=== PATIENT | male | born 1985 | race Caucasian/White ===

== ENCOUNTER 2021-09-02 06:29 | Emergency (ER) | payer OTHER ==
[~2021-09-02] VITALS: Ht 182.9 cm; Wt 86.0 kg
--- NOTE | 2021-09-02 06:41 | PHYS DOC ---
Adult General HPI HPI Patient is a 35-year-old male presenting for sinus issues. Reports he has had 10 days of generalized URI symptoms. Reports after day 3 he visited local urgent care, was negative for strep, flu and Covid at that time but subsequently given prednisone burst. He reports he had mild relief in symptoms but this was transient. Nonetheless, he has developed increased sinus pressure more focal on right with development of blood-tinged snot and production of green sputum which is unusual for him. 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 He has been at home self quarantining and has taken Covid test past 3 days at home that have all been negative. He presents today due to ongoing symptoms and concern his sinus issues are in fact bacterial instead of viral Review of Systems Review of Systems Fourteen body systems of review of systems have been reviewed. See HPI for pertinent positives and negative responses, other flynn all other systems are negative, non-pertinent or non-contributory Physical Exam Physical Exam General: Appears well, non toxic, and comfortable Skin: Warm, dry. Normal for ethnicity. HEENT: Atraumatic. PERRLA. Rhinorrhea and congestion. Nasal turbinates boggy b/l. Bilateral frontal sinuses tender to palpation and full. Moist mucous membranes. Uvula midline. Maintaining secretions. No phonation changes. Neck: Trachea midline. Normal ROM. No stridor. Respiratory: Normal WOB. CTAB w/o w/r/r. No tachypnea. Cardiovascular: Regular rate and rhythm. Normal peripheral perfusion. Abdomen: Soft. Non tender. No distension. Back: Normal ROM. Musculoskeletal: No swelling or deformity. Neuro: Alert and oriented x 4. MAEE. Lymph: No cervical LAD. Psych: Normal affect and mood. EKG EKG [] Radiology/Procedures Radiology/Procedures [] Heart Score C/O Chest Pain: No Risk Factors: Risk Factors: DM, Current or recent (<one month) smoker, HTN, HLP, family history of CAD, obesity. Risk Scores: Risk Factors: DM, Current or recent (<one month) smoker, HTN, HLP, family history of CAD, obesity. Course & Med Decision Making Course & Med Decision Making ABCs unremarkable HPI and comprehensive physical exam nonconcerning for any emergent or surgical issues No indication for further diagnostic ER workup, intervention, or hospitalization at this time During decision made to pursue antibiotic treatment at this time given length of symptoms and concern initially suspected viral sinusitis is in fact bacterial. Joint decision made to start Z-Niall Given symptoms, I have low suspicion for flu, Centor 0 and no indication to swab for strep. I discussed utility of Covid testing but patient has at home tests and prefers to keep swabbing self at home which I feel is appropriate Ultimately patient discharged home with new prescription for Z-Niall and continued supportive care with appropriate return precautions discussed and verbally understood by an afebrile hemodynamically stable patient Olman Disclaimer Olman Disclaimer This electronic medical record was generated, in whole or in part, using a voice recognition dictation system. Departure Departure: Impression: Primary Impression: Bacterial sinusitis Disposition: HOME / SELF CARE / HOMELESS Condition: STABLE Referrals: PCP,UNKNOWN (PCP) Patient Instructions: Sinusitis Scripts Azithromycin (AZITHROMYCIN PACKET) 1 Gm Packet 1 PACKET PO ONCE for sinusitis for 1 Day, #1 PACKET 0 Refills dissolve in 2 ounces of water Prov: JESSICA STEINER DO 09/02/21 JESSICA STEINER DO Sep 02, 2021 06:41
[2021-09-02 06:52] VITALS: BP 144/89
[2021-09-02] MEDS ORDERED: AZIT1PAC9 PO (06:54)
== END 2021-09-02 07:02 | disposition home or self-care (01) ==
LOC: ER 06:29
DX: J06.9 Acute upper respiratory infection, unspecified (principal); J32.9 Chronic sinusitis, unspecified
CPT/HCPCS: 99283-25

== ENCOUNTER 2021-09-03 07:25 | Emergency (ER) | payer OTHER ==
[~2021-09-03] VITALS: Ht 182.9 cm; Wt 86.0 kg
[2021-09-03 07:25] VITALS: BP 145/90
[~2021-09-03 07:25] MED LIST: AZIT1PAC9 PO
--- NOTE | 2021-09-03 07:33 | PHYS DOC ---
Past History Past Surgical History: No Surgical History Alcohol Use: None Adult General Chief Complaint Chief Complaint: NOSEBLEED HPI HPI Patient is a 35-year-old male presenting for nasal issues. I saw individual yesterday and diagnosed him with bacterial sinusitis. States that he presents today for reassurance that blood-tinged rhinorrhea and sputum/snot is okay. States he feels that the antibiotics have been helping him since his 1st dose yesterday but admits he has been blowing his nose more in attempt to relieve his nasal congestion. Reports he feels blood tinge draining down the back of his throat and at times has seen blood on tissue paper when blowing nose which concerned him prompting him to come in for evaluation. No fever, lightheaded or dizziness or other concerning signs or symptoms reported Review of Systems Review of Systems Fourteen body systems of review of systems have been reviewed. See HPI for pertinent positives and negative responses, other flynn all other systems are negative, non-pertinent or non-contributory Allergies Allergies Allergies Coded Allergies Type Severity Reaction Last Updated Verified No Known Drug Allergies 09/02/21 No Physical Exam Physical Exam Constitutional: Well developed, well nourished, no acute distress, non-toxic appearance. HENT: Normocephalic, atraumatic, bilateral external ears normal, oropharynx moist, no oral exudates, external nose unremarkable, bilateral nasal turbinates dry and raw, right side in particular has area which is raw with dried blood present in anterior nare Eyes: PERRLA, EOMI, conjunctiva normal, no discharge. Neck: Normal range of motion, no tenderness, supple, no stridor. Cardiovascular: Heart rate regular, sinus rhythm, no murmurs rubs or gallops Lungs & Thorax: Bilateral breath sounds clear to auscultation Abdomen: Bowel sounds normal, soft, no tenderness, no masses, no pulsatile masses. Nonsurgical abdomen, no peritoneal signs Skin: Warm, dry, no erythema, no rash. Back: No tenderness, no CVA tenderness. Extremities: No tenderness, no cyanosis, no clubbing, ROM intact, no edema. Neurologic: Alert and oriented X 3, grossly normal motor & sensory function, no focal deficits noted. Psychologic: Affect normal, judgement normal, mood normal. EKG EKG [] Radiology/Procedures Radiology/Procedures [] Heart Score C/O Chest Pain: No Risk Factors: Risk Factors: DM, Current or recent (<one month) smoker, HTN, HLP, family history of CAD, obesity. Risk Scores: Risk Factors: DM, Current or recent (<one month) smoker, HTN, HLP, family history of CAD, obesity. Course & Med Decision Making Course & Med Decision Making ABCs unremarkable Vitals and physical exam nonconcerning. Patient here and is worried well. Reassurance provided. Advised to continue prescribed antibiotics given yesterday Close outpatient/PCP follow-up advised Olman Disclaimer Olman Disclaimer This electronic medical record was generated, in whole or in part, using a voice recognition dictation system. Departure Departure: Impression: Primary Impression: Bacterial sinusitis Disposition: HOME / SELF CARE / HOMELESS Condition: STABLE Referrals: PCP,UNKNOWN (PCP) Additional Instructions: As discussed prior to ER departure, your vitals and physical exam were nonconcerning for any emergent or surgical issues. Your nasal turbinates and nares in general are dry and raw. This in combination with your acute bacterial infection of the sinuses is contributing to blood tinged sputum. As discussed, please fern picker [id number] nasal saline to lubricate inside her nose and moisten nares. In addition, please fern picker Afrin. If you develop a nosebleed, please direct pressure on bilateral nostrils and hold for 15 minutes. After this, reevaluate and blow nose to blow out clots, if bleeding persists please spray Afrin in each nostril and repeat. After 15 minutes, reevaluate again and if bleeding is still occurring, please come into the ER for evaluation. Otherwise, please take previously prescribed antibiotics to completion as discussed. It was pleasure to take care of you and I wish you the best going forward JESSICA STEINER DO Sep 03, 2021 07:33
== END 2021-09-03 07:45 | disposition home or self-care (01) ==
LOC: ER 07:25
DX: J32.9 Chronic sinusitis, unspecified (principal); B96.89 Other specified bacterial agents as the cause of diseases classified elsewhere
CPT/HCPCS: 99282